=== PATIENT | female | born 1950 | race Caucasian/White ===

== ENCOUNTER 2019-06-09 13:31 | Emergency (ER) | payer OTHER ==
--- OUTSIDE RECORDS SUMMARY | 2019-06-09 13:37 | XMS REPORT ---
:1950 [facility] Address [address] [place] [address] Dr. [address] [place] [id number] Care Team Providers Name Role Phone Unavailable Unavailable Unavailable Problems This patient has no known problems. Allergies, Adverse Reactions, Alerts This patient has no known allergies or adverse reactions. Medications This patient has no known medications.
[2019-06-09] MEDS ORDERED: IBUPROFEN 400 MG TAB ONE (14:11)
--- NOTE | 2019-06-09 14:55 | RAD REPORT ---
EXAM DESCRIPTION: RAD - Hand Right 3 View - 06/09/2019 2:20 pm CLINICAL HISTORY: PAIN Fall, pain COMPARISON: Hand Right 3 View dated 02/10/2018 FINDINGS: No acute fracture or dislocation is seen.
[2019-06-09] MEDS ORDERED: HYDROCODONE/APAP 5/325 MG TAB ONE (15:21)
--- NOTE | 2019-06-09 15:27 | ER ---
Nurse's Notes [facility] Name: Drew Conte Age: 69 yrs Sex: Female : 1950 Arrival Date: 06/09/2019 Time: 13:32 Bed 6 Private MD: Diagnosis: Contusion of right hand Presentation: 06/09 13:37 Presenting complaint: Patient states: stated she tripped over a step and fell down and sv braced herself with her right hand, hit her face but denies LOC. Transition of care: patient was not received from another setting of care. Onset of symptoms was June 09, 2019. Care prior to arrival: None. 13:37 Method Of Arrival: Wheelchair sv 13:37 Acuity: KEISHA 3 sv Triage Assessment: 13:37 General: Appears in no apparent distress. uncomfortable, Behavior is calm, cooperative, sv appropriate for age. Pain: Complains of pain in right hand. Neuro: Level of Consciousness is awake, alert, obeys commands, Moves all extremities. Respiratory: Respiratory effort is even, unlabored. Musculoskeletal: Circulation, motion, and sensation intact. Historical: - Allergies: 13:38 Keflex; sv 13:38 Codeine; sv 13:38 Erythromycin; sv - PMHx: 13:38 None; sv - PSHx: 13:38 None; sv - Immunization history:: Adult Immunizations up to date. - Coronavirus screen:: The patient has NOT traveled to [place] in the past 14 days. Proceed with normal triage process as indicated. The patient has NOT had contact with known/suspected case of Coronavirus? Proceed with normal triage procedures. - Social history:: Smoking status: Patient denies any tobacco usage or history of. - Ebola Screening: : No symptoms or risks identified at this time. Screenin:15 Abuse screen: Denies threats or abuse. Denies injuries from another. Nutritional jl7 screening: No deficits noted. Tuberculosis screening: No symptoms or risk factors identified. Fall Risk Fall in past 12 months (25 points). Total Gallegos Fall Scale indicates Low Risk Score (25-44 pts). Fall prevention measures have been instituted. Side Rails Up X 2 Frequent Obs/Assesments occuring Family Present and informed to notify staff if they need to leave bedside As available Patient and Family Educated on Fall Prevention Program and strategies. Assessment: 14:15 General: Appears in no apparent distress. uncomfortable, Behavior is calm, cooperative, jl7 appropriate for age. Pain: Complains of pain in right hand Pain currently is 5 out of 10 on a pain scale. Neuro: Level of Consciousness is awake, alert, obeys commands, Oriented to person, place, time, situation. Cardiovascular: Patient's skin is warm and dry. Respiratory: Airway is patent Respiratory effort is even, unlabored, Respiratory pattern is regular, symmetrical. Derm: Skin is pink, warm \T\ dry. Musculoskeletal: Swelling present in right hand. 15:15 Reassessment: Patient appears in no apparent distress at this time. No changes from jl7 previously documented assessment. Patient and/or family updated on plan of care and expected duration. Pain level reassessed. Patient is alert, oriented x 3, equal unlabored respirations, skin warm/dry/pink. Vital Signs: 13:39 BP 130 / 80; Pulse 60; Resp 22; Temp 97; Pulse Ox 100% ; Weight 73.03 kg; Height 5 ft. sv 0 in. (152.40 cm); Pain 5/10; 15:15 BP 148 / 72; Pulse 54; Resp 16 S; Pulse Ox 97% on R/A; jl7 13:39 Body Mass Index 31.44 (73.03 kg, 152.40 cm) sv ED Course: 13:32 Patient arrived in ED. as 13:37 Arm band placed on. sv 13:38 Triage completed. sv 13:40 Micheal Humphrey MD is Attending Physician. tw4 14:05 Claritza Palma, RN is Primary Nurse. jl7 14:15 X-ray completed. Portable x-ray completed in exam room. Patient tolerated procedure mz well. 14:15 Patient has correct armband on for positive identification. Bed in low position. Call jl7 light in reach. Side rails up X 1. 14:19 Hand Right 3 View XRAY In Process Unspecified. EDMS 15:26 Santana Brunson MD is Referral Physician. tw4 15:35 No provider procedures requiring assistance completed. Patient did not have IV access jl7 during this emergency room visit. Administered Medications: 14:11 Drug: Ibuprofen 800 mg Route: PO; jl7 15:34 Follow up: Response: No adverse reaction jl7 15:30 Drug: [place] 5 mg-325 mg 1 tabs Route: PO; jl7 15:35 Follow up: Response: Medication administered at discharge. jl7 Outcome: 15:26 Discharge ordered by . tw4 15:35 Discharged to home ambulatory, with family. jl7 15:35 Condition: stable 15:35 Discharge instructions given to patient, family, Instructed on discharge instructions, follow up and referral plans. medication usage, Demonstrated understanding of instructions, follow-up care, medications, Prescriptions given X 1. 15:36 Patient left the ED. jl7 Signatures: Dispatcher [employer] April Horvath, RN RN Rebeca Lance Jahala, RN RN jl7 Micheal Humphrey MD MD tw4 Agapito Ness
--- NOTE | 2019-06-09 15:27 | EDPHYS ---
Physician Documentation [facility] Name: Drew Conte Age: 69 yrs Sex: Female : 1950 Arrival Date: 06/09/2019 Time: 13:32 Bed 6 Private MD: ED Physician Micheal Humphrey HPI: 06/09 17:43 This 69 yrs old Female presents to ER via Wheelchair with complaints of Hand tw4 Injury. 17:43 The patient or guardian reports injury, pain. The complaints affect the right hand tw4 diffusely. Context: The problem was sustained on a street or driveway, resulted from a fall. Onset: The symptoms/episode began/occurred today. Modifying factors: The symptoms are alleviated by nothing, the symptoms are aggravated by nothing. Associated signs and symptoms: The patient has no apparent associated signs or symptoms. The patient has not experienced similar symptoms in the past. Historical: - Allergies: 13:38 Keflex; sv 13:38 Codeine; sv 13:38 Erythromycin; sv - PMHx: 13:38 None; sv - PSHx: 13:38 None; sv - Immunization history:: Adult Immunizations up to date. - Coronavirus screen:: The patient has NOT traveled to [place] in the past 14 days. Proceed with normal triage process as indicated. The patient has NOT had contact with known/suspected case of Coronavirus? Proceed with normal triage procedures. - Social history:: Smoking status: Patient denies any tobacco usage or history of. - Ebola Screening: : No symptoms or risks identified at this time. ROS: 17:43 Constitutional: Negative for fever, chills, and weight loss, Eyes: Negative for injury, tw4 pain, redness, and discharge, Cardiovascular: Negative for chest pain, palpitations, and edema, Respiratory: Negative for shortness of breath, cough, wheezing, and pleuritic chest pain, Abdomen/GI: Negative for abdominal pain, nausea, vomiting, diarrhea, and constipation. 17:43 MS/extremity: Positive for injury or acute deformity, decreased range of motion, pain, swelling, tenderness, Negative for abrasion, bite, contusion, deformity, ecchymosis, erythema, laceration. Exam: 17:43 Constitutional: This is a well developed, well nourished patient who is awake, alert, tw4 and in no acute distress. Head/Face: Normocephalic, atraumatic. Chest/axilla: Normal chest wall appearance and motion. Nontender with no deformity. No lesions are appreciated. Cardiovascular: Regular rate and rhythm with a normal S1 and S2. No gallops, murmurs, or rubs. Normal PMI, no JVD. No pulse deficits. Abdomen/GI: Soft, non-tender, with normal bowel sounds. No distension or tympany. No guarding or rebound. No evidence of tenderness throughout. Back: No spinal tenderness. No costovertebral tenderness. Full range of motion. Female : Normal external genitalia. 17:43 Musculoskeletal/extremity: Extremities: noted in the dorsum of right hand and outer aspect of right palm: Vital Signs: 13:39 BP 130 / 80; Pulse 60; Resp 22; Temp 97; Pulse Ox 100% ; Weight 73.03 kg; Height 5 ft. sv 0 in. (152.40 cm); Pain 5/10; 15:15 BP 148 / 72; Pulse 54; Resp 16 S; Pulse Ox 97% on R/A; jl7 13:39 Body Mass Index 31.44 (73.03 kg, 152.40 cm) sv MDM: 13:40 Patient medically screened. tw4 17:47 Differential diagnosis: dislocation, open fracture, closed fracture, contusion, tw4 abrasion. Data reviewed: vital signs, nurses notes. Data interpreted: Pulse oximetry: Interpretation: normal. Test interpretation: by ED physician or midlevel provider: plain radiologic studies. Counseling: I had a detailed discussion with the patient and/or guardian regarding: the historical points, exam findings, and any diagnostic results supporting the discharge/admit diagnosis, radiology results. Special discussion: I discussed with the patient/guardian in detail that at this point there is no indication for admission to the hospital. It is understood, however, that if the symptoms persist or worsen the patient needs to return immediately for re-evaluation. 06/09 14:02 Order name: Hand Right 3 View XRAY; Complete Time: 15:10 tw4 Administered Medications: 14:11 Drug: Ibuprofen 800 mg Route: PO; jl7 15:34 Follow up: Response: No adverse reaction jl7 15:30 Drug: [place] 5 mg-325 mg 1 tabs Route: PO; jl7 15:35 Follow up: Response: Medication administered at discharge. jl7 Disposition: 06/09/19 15:26 Discharged to Home. Impression: Contusion of right hand. - Condition is Stable. - Discharge Instructions: Hand Contusion, [id number]. - Prescriptions for Tylenol- Codeine #3 300-30 mg Oral Tablet - take 2 tablet by ORAL route every 6 hours As needed; 6 tablet. Tramadol 50 mg Oral Tablet - take 1 tablet by ORAL route every 8 hours as needed; 12 tablet. - Medication Reconciliation Form, Thank You Letter, Antibiotic Education, Prescription Opioid Use form. - Follow up: Private Physician; When: Upon discharge from the Emergency Department; Reason: If symptoms return, Recheck today's complaints, Continuance of care, Re-evaluation by your physician. Follow up: Santana Brunson MD; When: Today; Reason: If symptoms return, Recheck today's complaints, Continuance of care, Re-evaluation by your physician. - Problem is new. - Symptoms have improved. Signatures: Dispatcher [employer] EDApril Buckner RN RN Claritza Palma RN RN jl7 Micheal Humphrey MD MD tw4 Corrections: (The following items were deleted from the chart) 15:36 15:26 06/09/2019 15:26 Discharged to Home. Impression: Contusion of right hand. jl7 Condition is Stable. Forms are Medication Reconciliation Form, Thank You Letter, Antibiotic Education, Prescription Opioid Use. Follow up: Private Physician; When: Upon discharge from the Emergency Department; Reason: If symptoms return, Recheck today's complaints, Continuance of care, Re-evaluation by your physician. Follow up: Santana Brunson; When: Today; Reason: If symptoms return, Recheck today's complaints, Continuance of care, Re-evaluation by your physician. Problem is new. Symptoms have improved. tw4
[2019-06-09 15:42] VITALS: TEMP 97
[2019-06-09 15:43] VITALS: BP 148/72; O2SAT 97
== END 2019-06-09 15:36 | disposition home or self-care (01) ==
LOC: ER 13:31
DX: S60.221A Contusion of right hand, initial encounter (principal); W19.XXXA Unspecified fall, initial encounter; Y93.9 Activity, unspecified; Y92.89 Other specified places as the place of occurrence of the external cause; Z88.1 Allergy status to other antibiotic agents; Z88.3 Allergy status to other anti-infective agents; Z88.5 Allergy status to narcotic agent
CPT/HCPCS: 99283

== ENCOUNTER 2020-04-27 11:04 | Emergency (ER) | payer OTHER ==
--- OUTSIDE RECORDS SUMMARY | 2020-04-27 11:06 | XMS REPORT | Continuity of Care Document ---
:1950 Author Organization [facility] t Address [address] [place] [id number] Care Team Providers Name Role Phone Unavailable Unavailable Unavailable Problems Condition Condition Condition Status Onset Resolution Last Treating Co mments Source Name Details Category Date Date Treatment Clinician Date Encounter Diagnosis Active 2019-06-10 Memoria for 03:45:19 l immunizati González n on Encounter for immunizati on Active Diagnosis 06/10/2019 [facility] Screening Diagnosis Active 2019-06-10 Memoria for 03:45:19 l osteoporos González n is Screening for osteoporos is Active Diagnosis 06/10/2019 [facility] Abnormal Diagnosis Active 2019-06-10 M emoria immunologi 03:45:19 l esthela Abnormal González n finding in immunologi serum, esthela unspecifie finding in d serum, unspecifie d Active Diagnosis 06/10/2019 [facility] Arthralgia Diagnosis Active 2019-06-10 Memoria of right 03:45:19 l hand Bret Arthralgia of right hand Active Diagnosis 06/10/2019 [facility] Vitamin D Diagnosis Active 2019-06-10 Memoria deficiency 03:45:19 l Vitamin [place] D deficiency Active Diagnosis 06/10/2019 [facility] Benign Diagnosis Active 2019-06-10 Mem oria essential 03:45:19 l hypertensi Benign Herm paulino on essential hypertensi on Active Diagnosis 06/10/2019 [facility] Allergies, Adverse Reactions, Alerts Allergy Allergy Status Severity Reaction(s) Onset Inactive Treating Comm ents Source Name Type Date Date Clinician Keflex Keflex Active Info Not 2020-0 Memoria Available 2-25 l 00:00: [place] 00 Erythrom Erythrom Active Info Not 2020-0 Fausto polo ycin ycin Available 2-25 l 00:00: Bret 00 Codeine Codeine Active Info Not 2020-0 Memori a Sulfate Sulfate Available 2-25 l 00:00: Medications Ordered Filled Start Stop Current Ordering Indication Dosage Frequency Signature Comments Components Source Medication Medication Date Date Medication? Clinician (SIG) Name Name Kristi 2019-0 Yes Nilanjana 1 tablet Memoria Sodium 2-26 Suellen l 03:45: Bret Phentermine 2020-0 Yes Nilanjana 1 capsule Memoria HCl 2-26 Suellen l 03:45: Bret 19 Biotin 2019-0 Yes Nilanjana 1 tablet Me moria 2-26 Suellen l 03:45: Bret Melatonin 2019-0 Yes Nilanjana 1 tablet Memoria 2-26 Suellen at bedtime l 03:45: as needed Bret 19 with food Atenolol 2019-0 Yes Nilanjana 1 tablet Memoria 2-26 Suellen l 03:45: Bret 19 B-12 2019-0 Yes Nilanjana not Memoria 2-26 Suellen defined l 03:45: Bret Pantoprazol 2019-0 Yes Nilanjana 1 tablet Memoria e Sodium 2-26 Suellen l 03:45: Bret Metamucil 2019-0 Yes Nilanjana not Mem oria 2-26 Suellen defined l 03:45: Bret Vitamin E 2019-0 Yes Nilanjana 1 capsule Memoria 2-26 Suellen l 03:45: Bret 19 Losartan 2019-0 Yes Nilanjana 1 tablet Memoria Potassium 2-26 Suellen l 03:45: Bret Fluoxetine 2019-0 Yes Nilanjana 1 capsule Memoria HCl 2-26 Suellen l 03:45: Bret Levothyroxi 2019-0 Yes Nilanjana 1 tablet Memoria ne Sodium 2-26 Suellen on an l 03:45: empty Bret stomach in the morning PredniSONE 2018-0 Yes Nilanjana 1 tablet Memoria 6-27 Suellen l 00:00: Bret 00 Vital Signs Vital Name Observation Time Observation Value Comments Source Weight 2019-06-09 17:00:00 [facility] Height 2019-06-09 17:00:00 [facility] Heart Rate 2019-06-09 17:00:00 [facility] Diastolic (mm Hg) 2019-06-09 17:00:00 Mem orial Bret Systolic (mm Hg) 2019-06-09 17:00:00 Fausto rial Bret Procedures This patient has no known procedures. Encounters Start End Encounter Admission Attending Care Care Encounter Source Date/Time Date/Time Type Type Clinicians Facility Department ID 2019-06-09 2019-06-09 Outpatient PRL - PRL - [id number] [facility] 11:00:00 11:00:00 [facility] 2019-06-02 2019-06-02 Outpatient JANN - JANN - [id number] [facility] 20:57:00 20:57:00 [facility] 2018-11-14 2018-11-14 Outpatient JANN - JANN - [id number] [facility]inic 13:04:00 13:04:00 [facility] Results This patient has no known results.
--- OUTSIDE RECORDS SUMMARY | 2020-04-27 11:06 | XMS REPORT | Continuity of Care Document ---
:1950 Author Organization [employer] Care Team Providers Name Role Phone [employer] Unavailable Un available Problems Problem Status Onset Classification Date Comments Sourc e Date Reported Encounter for Active Diagnosis 06/10/2019 [facility] Screening for Active Diagnosis 06/10/2019 [facility] Abnormal Active Diagnosis 06/10/2019 [facility] immunological [facility] [place] finding in serum, unspecified Arthralgia of Active Diagnosis 06/10/2019 [facility] right hand of [place] Vitamin D Active Diagnosis 06/10/2019 [facility] deficiency [facility] Benign essential Active Diagnosis 06/10/2019 [facility] hypertension [facility] [place] Medications Medication Details Route Status Patient Ordering Order Source Instructions Provider Date PredniSONE 1 tablet Orally Active 5 MG Orally Suellen [facility] Montelukast 1 tablet Orally Active 10 MG Orally Suellen [facility] Sodium Once a day [facility] Phentermine HCl 1 capsule Orally Active 37.5 MG Orally Suellen [facility] Once a day [facility] Biotin 1 tablet Orally Active 1000 MCG Orally Suellen [facility] Once a day [facility] Melatonin 1 tablet Orally Active 5 MG Orally Suellen [facility] at bedtime Once a day [facility]tr of as needed [place] with food Atenolol 1 tablet Orally Active 50 MG Orally Suellen [facility] twice a day [facility] [place] B-12 not NA Active Suellen [facility] defined [facility] Pantoprazole 1 tablet Orally Active 40 MG Orally Suellen [facility] Sodium twice a day [facility] Metamucil not NA Active Suellen [facility] defined [facility] Vitamin E 1 capsule Orally Active 400 UNIT Orally Suellen Rhe[facility] m Once a day [facility] Losartan 1 tablet Orally Active 25 MG Orally Suellen Rhe[facility] Potassium twice a day [facility] Fluoxetine HCl 1 capsule Orally Active 40 MG Orally Suellen Rh eum Once a day [facility] Levothyroxine 1 tablet Orally Active 75 MCG Orally Suellen Rhe um Sodium on an Once a day [facility]tr of empty [place] stomach in the morning Allergies, Adverse Reactions, Alerts Substance Category Reaction Severity Reaction Status Date Comments S ource type Reported Keflex Adverse Info Not Adverse Active [facility] Reaction Available Reaction [facility] Erythromycin Adverse Info Not Adverse Active Rhe[facility] Reaction Available Reaction [facility] Codeine Adverse Info Not Adverse Active Rhe[facility] Sulfate Reaction Available Reaction 0 [facility] Immunizations No Data Provided for This Section Results No Data Provided for This Section Pathology Reports No Data Provided for This Section Diagnostic Reports No Data Provided for This Section Consultation Notes No Data Provided for This Section Discharge Summaries No Data Provided for This Section History and Physicals No Data Provided for This Section Vital Signs Vital Sign Value Date Comments Source Weight 170 06/09/2019 [facility] Height 60 06/09/2019 [facility] Heart Rate 50 06/09/2019 [facility] Diastolic (mm Hg) 63 06/09/2019 [facility] Systolic (mm Hg) 128 06/09/2019 [facility] Encounters No Data Provided for This Section Procedures No Data Provided for This Section Assessment and Plan No Data Provided for This Section Plan of Care No Data Provided for This Section Social History No Data Provided for This Section Family History No Data Provided for This Section Advance Directives No Data Provided for This Section Functional Status No Data Provided for This Section
[2020-04-27 13:21] LABS: Absolute Lymphocytes (CBC) 0.9 K/uL (0.7-4.9); Basophils % 0.8 % (0-1.3); Hematocrit 48.5 % (36.0-45.0); Lymphocytes % 8.4 % (15.3-44.8); MPV 9.9 fL (7.6-11.3); RBC Red Blood Cell Count 5.36 M/uL (3.86-4.86)
[2020-04-27 13:36] LABS: Albumin 3.5 g/dL (3.4-5.0); Bilirubin Direct 0.1 mg/dL (0-0.2); Bilirubin Total 0.7 mg/dL (0.2-1.0); Potassium 4.3 mmol/L (3.5-5.1); Protein, Total 8.4 g/dL (6.4-8.2)
[2020-04-27 14:20] LABS: Blood Morphology Comment NOT SEEN (NOT SEEN); Platelet Estimate ADEQ; White Blood Cell Scan OK (OK)
--- NOTE | 2020-04-27 14:38 | RAD REPORT ---
EXAM DESCRIPTION: CT - Abdomen Pelvis Wo Contrast - 04/27/2020 2:06 pm CLINICAL HISTORY: ABD PAIN COVID positive COMPARISON: No comparisons TECHNIQUE: Axial [address] imaging of the abdomen and pelvis was performed without IV contrast. No IV contrast was given because of allergy, abnormal renal function, patient refusal or physician re quest. No oral contrast administered. All CT scans are performed using dose optimization technique as appropriate and may include automated exposure control or mA/KV adjustment according to patient size. FINDINGS: Interstitial opacification is present. There is some minimal patchy alveolar opacification in the inferior lingula. No suspicious mass lesions seen. A few very small areas of nodularity and 5 mm noted. Lung parenchyma is not adequately visualized to evaluate for COVID-19 pneumonia. The liver, spleen and pancreas show no suspicious findings on non-contrast imaging. Gallbladder and b iliary tree are also without suspicious finding. No hydronephrosis or suspicious mass of the right kidney. No normal left renal parenchyma seen. There is a 7 cm diameter thin-walled cystic mass in the left renal fossa with minimal rim calcifications s een. The ureter is still present. 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 This is not seen as an acute or clinically significant finding. No significant adrenal finding. Isodense renal masses and pyelonephritis cannot be excluded in the ab sence of IV contrast. Contracted urinary bladder shows no suspicious finding. Uterus and ovaries also without suspicious finding. No gastric wall thickening or mass. Minimal hiatal hernia is present. No dilated large or small bowel . No wall thickening, edema or inflammatory stranding. No free air, free fluid or pneumatosis. No her keke, mass or bulky lymphadenopathy. No suspicious bony findings. IMPRESSION: Non-contrast enhanced CT abdomen and pelvis imaging show no acute or emergent finding. N o acute or active GI process seen. Interstitial and some scattered alveolar opacities are present in the lung bases not adequately visua lized to allow an accurate assessment of possible COVID-19 lung disease. Additional nonacute findings detailed in the body of the report.
--- NOTE | 2020-04-27 14:43 | ER ---
Nurse's Notes [facility] Name: Drew Conte Age: 69 yrs Sex: Female : 1950 Arrival Date: 04/27/2020 Time: 11:06 Bed 30 Private MD: Diagnosis: Diarrhea, unspecified;Coronavirus infection, unspecified Presentation: 04/27 11:35 Chief complaint: Patient states: Tested positive for COVID 9 days ago at [facility], woke this jl7 morning and felt fine this had "Explosive diarrhea" x 1 and epigastric tenderness, denies current N/V, denies shortness of breath. Coronavirus screen: Client presents with at least one sign or symptom that may indicate coronavirus-19. Standard/surgical mask placed on the client. Provider contacted for isolation considerations. Client reports previous positive COVID test result. Date of collection: April 16, 2020. Ebola Screen: No symptoms or risks identified at this time. Initial Sepsis Screen: Does the patient meet any 2 criteria? No. Patient's initial sepsis screen is negative. Does the patient have a suspected source of infection? No. Patient's initial sepsis screen is negative. Risk Assessment: Do you want to hurt yourself or someone else? Patient reports no desire to harm self or others. Onset of symptoms was April 27, 2020. Care prior to arrival: None. 11:35 Method Of Arrival: Ambulatory [facility] 11:35 Acuity: KEISHA 3 jl7 Triage Assessment: 11:39 General: Appears in no apparent distress. uncomfortable, ill, Behavior is calm, jl7 cooperative. Pain: Denies pain. GI: Reports diarrhea. Historical: - Allergies: 11:39 Codeine; jl7 11:39 Erythromycin; jl7 11:39 Keflex; jl7 - Home Meds: 11:39 losartan oral oral [Active]; Atenolol Oral [Active]; levothyroxine oral [Active]; jl7 - PMHx: 11:39 Hypertension; Hypothyroidism; jl7 - Immunization history:: Adult Immunizations up to date. - Social history:: Smoking status: Patient denies any tobacco usage or history of. Screenin:56 Abuse screen: Denies threats or abuse. Denies injuries from another. Nutritional zb screening: No deficits noted. Tuberculosis screening: No symptoms or risk factors identified. Fall Risk None identified. Assessment: 12:53 General: Appears in no apparent distress. uncomfortable, Behavior is calm, cooperative, zb appropriate for age, Reports feeling ill for fatigue for 0-12 hours, Denies fever, chills. Pain: Complains of pain in epigastric area Pain does not radiate. Pain currently is 1 out of 10 on a pain scale. Pain: Quality of pain is described as Is episodic. Neuro: Level of Consciousness is awake, alert, obeys commands, Oriented to person, place, time, situation. Cardiovascular: Capillary refill < 3 seconds in bilateral Patient's skin is warm and dry. Respiratory: Airway is patent Respiratory effort is even, unlabored, Respiratory pattern is regular, symmetrical. GI: Abdomen is round non-distended, Bowel sounds present X 4 quads. Abd is soft and non tender X 4 quads. Reports diarrhea, nausea. : No signs and/or symptoms were reported regarding the genitourinary system. EENT: No signs and/or symptoms were reported regarding the EENT system. Derm: Skin is intact, is healthy with good turgor, is fragile, Skin is dry, Skin is normal, Skin temperature is warm. Musculoskeletal: Circulation, motion, and sensation intact. Capillary refill < 3 seconds, in bilateral fingers. Range of motion: intact in all extremities. 14:25 Reassessment: Patient is alert, oriented x 3, equal unlabored respirations, skin aa5 warm/dry/pink. 15:20 Reassessment: Patient is alert, oriented x 3, equal unlabored respirations, skin aa5 warm/dry/pink. Patient states feeling better. Patient states symptoms have improved. Vital Signs: 11:35 BP 116 / 50; Pulse 48; Resp 17; Temp 97.5; Pulse Ox 100% ; Weight 72.12 kg; Height 5 jl7 ft. (152.40 cm); Pain 0/10; 14:25 BP 138 / 61; Pulse 62; Resp 55; Temp 97.8(TE); Pulse Ox 100% on R/A; aa5 15:00 BP 140 / 65; Pulse 60; Resp 18 S; Pulse Ox 99% on R/A; aa5 11:35 Body Mass Index 31.05 (72.12 kg, 152.40 cm) 7 ED Course: 11:06 Patient arrived in ED. ag5 11:37 Triage completed. jl7 11:39 Arm band placed on right wrist. jl7 12:15 Vanesa Kirkland FNP-C is [facility]. kb 12:15 Quintin Velasco MD is Attending Physician. kb 12:28 Prisca Summers, KRYSTA is Primary Nurse. zb 12:57 Patient has correct armband on for positive identification. court recording monitor on. Pulse zb ox on. NIBP on. Door closed. Noise minimized. 13:12 Inserted saline lock: 20 gauge in left antecubital area, using aseptic technique. Blood zb collected. 14:06 Abdomen In Process Unspecified. EDMS 15:20 No provider procedures requiring assistance completed. IV discontinued, intact, aa5 bleeding controlled, No redness/swelling at site. Pressure dressing applied. Administered Medications: 14:25 Drug: NS 0.9% 500 ml Route: IV; Rate: bolus; Site: left antecubital; aa5 14:30 Follow up: Response: No adverse reaction zb 15:15 Follow up: IV Status: Completed infusion; IV Intake: 500ml aa5 14:25 Drug: Zofran (Ondansetron) 4 mg Route: IVP; Site: left antecubital; aa5 14:30 Follow up: Response: No adverse reaction zb 14:35 Follow up: Response: No adverse reaction aa5 Intake: 15:15 IV: 500ml; Total: 500ml. aa5 Outcome: 14:43 Discharge ordered by MD. kb 15:20 Discharged to home via wheelchair, with significant other. aa5 15:20 Condition: improved 15:20 Discharge instructions given to patient, Instructed on discharge instructions, follow up and referral plans. medication usage, Demonstrated understanding of instructions, follow-up care, medications, Prescriptions given X 1. 15:25 Patient left the ED. aa5 Signatures: Dispatcher [employer] EDNM Vanesa Kirkland FNP-C FNP-Ckb Calderon, Audri RN RN aa5 Claritza Palma RN RN jl7 Clifford Kapoor ag5 Prisca Summers, KRYSTA RN zshanda Corrections: (The following items were deleted from the chart) 13:13 13:12 Inserted saline lock: 20 gauge in left antecubital area, using aseptic technique. zb zb 15:40 15:38 Patient left the ED. aa5 aa5
--- NOTE | 2020-04-27 14:43 | EDPHYS ---
Physician Documentation [facility] Name: Drew Conte Age: 69 yrs Sex: Female : 1950 Arrival Date: 04/27/2020 Time: 11:06 Bed 30 Private MD: ED Physician Quintin Velasco HPI: 04/27 14:56 This 69 yrs old Female presents to ER via Ambulatory with complaints of kb COVID+, Diarrhea, Doesn't Feel Right. 14:56 The patient presents to the emergency department with nausea, diarrhea. Onset: The kb symptoms/episode began/occurred this morning. Possible causes: covid. The symptoms are aggravated by nothing. The symptoms are alleviated by nothing. Associated signs and symptoms: Pertinent positives: diarrhea, nausea. Severity of symptoms: At their worst the symptoms were moderate in the emergency department the symptoms have improved. The patient has not experienced similar symptoms in the past. The patient has not recently seen a physician. Pt states she has had COVID since the beginning of the month. States she woke up feeling great, but then had an episode of diarrhea and felt nausea. . Historical: - Allergies: 11:39 Codeine; jl7 11:39 Erythromycin; jl7 11:39 Keflex; jl7 - Home Meds: 11:39 losartan oral oral [Active]; Atenolol Oral [Active]; levothyroxine oral [Active]; jl7 - PMHx: 11:39 Hypertension; Hypothyroidism; jl7 - Immunization history:: Adult Immunizations up to date. - Social history:: Smoking status: Patient denies any tobacco usage or history of. ROS: 14:55 Constitutional: Negative for fever, chills, and weight loss, Cardiovascular: Negative kb for chest pain, palpitations, and edema, Respiratory: Negative for shortness of breath, cough, wheezing, and pleuritic chest pain, Back: Negative for injury and pain, MS/Extremity: Negative for injury and deformity, Skin: Negative for injury, rash, and discoloration, Neuro: Negative for headache, weakness, numbness, tingling, and seizure. 14:55 Abdomen/GI: Positive for nausea, diarrhea, Negative for abdominal pain, vomiting. Exam: 14:55 Constitutional: This is a well developed, well nourished patient who is awake, alert, kb and in no acute distress. Head/Face: Normocephalic, atraumatic. Chest/axilla: Normal chest wall appearance and motion. Nontender with no deformity. No lesions are appreciated. Cardiovascular: Regular rate and rhythm with a normal S1 and S2. No gallops, murmurs, or rubs. Normal PMI, no JVD. No pulse deficits. Respiratory: Lungs have equal breath sounds bilaterally, clear to auscultation and percussion. No rales, rhonchi or wheezes noted. No increased work of breathing, no retractions or nasal flaring. Abdomen/GI: Soft, non-tender, with normal bowel sounds. No distension or tympany. No guarding or rebound. No evidence of tenderness throughout. Skin: Warm, dry with normal turgor. Normal color with no rashes, no lesions, and no evidence of cellulitis. MS/ Extremity: Pulses equal, no cyanosis. Neurovascular intact. Full, normal range of motion. Neuro: Awake and alert, GCS 15, oriented to person, place, time, and situation. Cranial nerves II-XII grossly intact. Motor strength 5/5 in all extremities. Sensory grossly intact. Cerebellar exam normal. Normal gait. Vital Signs: 11:35 BP 116 / 50; Pulse 48; Resp 17; Temp 97.5; Pulse Ox 100% ; Weight 72.12 kg; Height 5 jl7 ft. (152.40 cm); Pain 0/10; 14:25 BP 138 / 61; Pulse 62; Resp 55; Temp 97.8(TE); Pulse Ox 100% on R/A; aa5 15:00 BP 140 / 65; Pulse 60; Resp 18 S; Pulse Ox 99% on R/A; aa5 11:35 Body Mass Index 31.05 (72.12 kg, 152.40 cm) jl7 MDM: 12:15 Patient medically screened. kb 14:42 Data reviewed: vital signs, nurses notes. Data interpreted: Pulse oximetry: on room air kb is 100 %. Interpretation: normal. Counseling: I had a detailed discussion with the patient and/or guardian regarding: the historical points, exam findings, and any diagnostic results supporting the discharge/admit diagnosis, lab results, radiology results, the need for outpatient follow up, a family practitioner, to return to the emergency department if symptoms worsen or persist or if there are any questions or concerns that arise at home. 04/27 12:55 Order name: Basic Metabolic Panel; Complete Time: 13:46 kb 04/27 12:55 Order name: CBC with Diff; Complete Time: 14:25 kb 04/27 12:55 Order name: Hepatic Function; Complete Time: 13:46 kb 04/27 12:55 Order name: Lipase; Complete Time: 13:46 kb 04/27 14:20 Order name: CBC Smear Scan; Complete Time: 14:25 EDMS 04/27 12:55 Order name: IV Saline Lock; Complete Time: 14:19 kb 04/27 12:55 Order name: Labs collected and sent; Complete Time: 14:19 kb 04/27 13:49 Order name: Abdomen ; Complete Time: 14:41 EDMS Administered Medications: 14:25 Drug: NS 0.9% 500 ml Route: IV; Rate: bolus; Site: left antecubital; aa5 14:30 Follow up: Response: No adverse reaction zb 15:15 Follow up: IV Status: Completed infusion; IV Intake: 500ml aa5 14:25 Drug: Zofran (Ondansetron) 4 mg Route: IVP; Site: left antecubital; aa5 14:30 Follow up: Response: No adverse reaction zb 14:35 Follow up: Response: No adverse reaction aa5 Disposition: 18:07 Co-signature as Attending Physician, Quintin Velasco MD. rn Disposition: 04/27/20 14:43 Discharged to Home. Impression: Diarrhea, unspecified, Coronavirus infection, unspecified. - Condition is Stable. - Discharge Instructions: Food Choices to Help Relieve Diarrhea, Adult, Diarrhea, Adult, [id number], COVID-19. - Prescriptions for Zofran 4 mg Oral Tablet - take 1 tablet by ORAL route every 6 hours As needed; 20 tablet. - Medication Reconciliation Form, Thank You Letter, Antibiotic Education, Prescription Opioid Use form. - Follow up: Emergency Department; When: As needed; Reason: Worsening of condition. Follow up: Private Physician; When: 2 - 3 days; Reason: Recheck today's complaints, Continuance of care, Re-evaluation by your physician. Signatures: Dispatcher [employer] EDWI Vanesa Kirkland, ASSISTANT MANAGER PT-C ASSISTANT MANAGER PT-CkQuintin Newell MD MD rn Calderon, Audri, RN RN aa5 Claritza Palma RN RN jl7 Prisca Summers RN zb Corrections: (The following items were deleted from the chart) 13:49 12:56 Abdomen Pelvis W Con+CT.RAD.BRZ ordered. EDMS EDMS 15:38 14:43 04/27/2020 14:43 Discharged to Home. Impression: Diarrhea, unspecified; aa5 Coronavirus infection, unspecified. Condition is Stable. Forms are Medication Reconciliation Form, Thank You Letter, Antibiotic Education, Prescription Opioid Use. Follow up: Emergency Department; When: As needed; Reason: Worsening of condition. Follow up: Private Physician; When: 2 - 3 days; Reason: Recheck today's complaints, Continuance of care, Re-evaluation by your physician. kb
[2020-04-27] MEDS ORDERED: ONDANSETRON 4 MG/2 ML VIAL ONE (14:59)
[2020-04-27] MEDS ORDERED: NA CHLORIDE 0.9% 500 ML ONE (15:00)
[2020-04-27 15:43] VITALS: BP 116/50; TEMP 97.5; O2SAT 100
--- NOTE | 2020-04-28 11:23 | EKG ---
Test Date: 2020-04-27 Test Time: 12:46:19 Burial Agent: DARWIN MEASUREMENT RESULTS: Intervals: Rate: 49 [place]: 158 QRSD: 72 QT: 502 QTc: 453 [place]: P: 95 [place]: 158 QRS: 10 T: 7 INTERPRETIVE STATEMENTS: Sinus bradycardia Nonspecific ST abnormality Abnormal ECG Compared to ECG 04/20/2015 10:43:23 No significant changes Electronically Signed On 04-28-20 11:20:53 ACADEMIC ADMINISTRATOR by Maurilio Smalls
== END 2020-04-27 15:38 | disposition home or self-care (01) ==
LOC: ER 11:04
DX: U07.1 COVID-19 (principal); R19.7 Diarrhea, unspecified; I10 Essential (primary) hypertension; E03.9 Hypothyroidism, unspecified; Z88.6 Allergy status to analgesic agent; Z88.3 Allergy status to other anti-infective agents
CPT/HCPCS: 96361; 93005; 85025; 80048; 36415; 80076; 83690; 74176; 96374; 99284; J7040; J2405